=== PATIENT | female | born 1960 | race American Indian/Alaskan Native ===

== ENCOUNTER 2016-12-24 00:33 | Emergency (ER) | payer SELFPAY ==
[2016-12-24 00:54] VITALS: BMI 27.1
--- NOTE | 2016-12-24 01:15 | ED PDOC ---
Arrival/HPI - General Time Seen by Provider: 12/24/16 01:07 Historian: Patient - History of Present Illness Narrative History of Present Illness (Text): 12/24/16 01:14 Estefania Mendoza is a 56 year old female, whose past medical history includes pneumonia, sciatica, and hip surgery, who presents to the Emergency department brought in by EMS complaining of bilateral lower extremity pain. Patient states she began experiencing bilateral lower extremity pain, radiating from hips down to her feet, and associated headache after taking antibiotics yesterday. Patient states she took antibiotics she had leftover from the last time she had pneumonia after she woke up yesterday morning experiencing productive cough with sputum, chest pain, and body aches. Patient denies any recent fall/trauma, nausea, vomiting, neck pain, back pain, dizziness, or any other complaints. No PMD Time/Duration: Other (yesterday) Symptom Onset: Gradual Symptom Course: Unchanged Activities at Onset: Rest, Light Context: Home Past Medical History - Provider Review Nursing Documentation Reviewed: Yes Family/Social History - Physician Review Nursing Documentation Reviewed: Yes Family/Social History: No Known Family HX Allergies/Home Meds Allergies/Adverse Reactions: Allergies No Known Allergies Allergy (Unverified 12/24/16 01:14) Review of Systems - Physician Review All systems were reviewed & negative as marked: Yes - Review of Systems Constitutional: Normal Eyes: Normal ENT: Normal Respiratory: Cough, Sputum Cardiovascular: Chest Pain Gastrointestinal: Normal. absent: Abdominal Pain, Diarrhea, Nausea, Vomiting Genitourinary Female: Normal Musculoskeletal: Other (+bilateral lower extremity pain) Skin: Normal. absent: Rash Neurological: Headache Endocrine: Normal Hemo/Lymphatic: Normal Psychiatric: Normal Physical Exam Vital Signs Reviewed: Yes Vital Signs Temp Pulse Resp BP Pulse Ox 12/24/16 03:44 99.0 F 89 18 98/61 L 100 12/24/16 01:00 101.6 F H 99 H 16 117/66 99 Temperature: Febrile Blood Pressure: Normal Pulse: Regular Respiratory Rate: Normal Appearance: Positive for: Well-Appearing, Non-Toxic, Comfortable Pain Distress: None Mental Status: Positive for: Alert and Oriented X 3 - Systems Exam Head: Present: Atraumatic, Normocephalic Pupils: Present: PERRL Extroacular Muscles: Present: EOMI Conjunctiva: Present: Normal Mouth: Present: Moist Mucous Membranes Neck: Present: Normal Range of Motion Respiratory/Chest: Present: Clear to Auscultation, Good Air Exchange. No: Respiratory Distress, Accessory Muscle Use Cardiovascular: Present: Regular Rate and Rhythm, Normal S1, S2. No: Murmurs Abdomen: Present: Normal Bowel Sounds. No: Tenderness, Distention, Peritoneal Signs Back: Present: Normal Inspection Upper Extremity: Present: Normal Inspection. No: Cyanosis, Edema Lower Extremity: Present: Normal Inspection. No: Edema Neurological: Present: GCS=15, CN II-XII Intact, Speech Normal Skin: Present: Warm, Dry, Normal Color. No: Rashes Psychiatric: Present: Alert, Oriented x 3, Normal Insight, Normal Concentration Medical Decision Making ED Course and Treatment: 12/24/16 01:14 Impression: 56 year old female complaining of bilateral lower extremity pain, headache, productive cough, and chest pain. r/o pna, infuenza, dvt/pe, atypical cardiac Plan: -- US Duplex Lower Extremities -- EKG -- Chest X-ray -- Labs, D-dimer, cardiac enzymes, VBG, rapid influenza -- Urinalysis -- IV fluids -- Toradol -- Reassess and disposition Progress Notes: Reviewed EKG, NSR at [address]/T wave segment changes. 12/24/16 02:43 US Duplex Lower Extremities shows no evidence of DVT, as per preliminary read by [facility] tech. 12/24/16 02:48 On re-assessment, pt is resting comfortably. States her pain is much better. 12/24/16 03:58 CTA Chest shows: 1. No pulmonary embolus. 2. Mild emphysema. 3. Goitrous thyroid. 4. Small hiatal hernia. 5. 1.7 cm mass in the left breast. Ultrasound and mammographic evaluation is recommended. 12/24/16 04:23 pt sleeping in nad. trop neg. atypical pain. ct neg for pe/infiltrate. dvt study neg. labs unremarkable. no e/o of pna. stable for outpt management. pt states feels well to gohome. sleepign in nad - Lab Interpretations Lab Results: 12/24/16 01:40 12/24/16 01:40 Lab Results 12/24/16 02:45: Influenza Typ A,B (EIA) Negative for flu a/b 12/24/16 01:40: pO2 33, VBG pH 7.36, VBG pCO2 49.0, VBG HCO3 27.7, VBG Total CO2 29.2 H, VBG O2 Sat (Calc) 66.2 H, VBG Base Excess 1.5, VBG Potassium 4.2, Sodium 136.0, Chloride 106.0, Glucose 123 H, Lactate 0.8, FiO2 21.0, Venous Blood Potassium 4.2 12/24/16 01:40: Sodium 139, Chloride 104, Potassium 4.2, Carbon Dioxide 26, Anion Gap 13, BUN 8, Creatinine 0.9, Est GFR ( Amer) > 60, Est GFR (Non- Af Amer) > 60, Random Glucose 115 H, Calcium 9.6, Magnesium 1.8, Total Bilirubin 0.5, AST 21, ALT 27, Alkaline Phosphatase 63, Lactate Dehydrogenase 352, Total Creatine Kinase 53, Troponin I < 0.01, Total Protein 6.9, Albumin 4.1 , Globulin 2.8, Albumin/Globulin Ratio 1.5 12/24/16 01:40: PT 11.1, INR 1.03, APTT 27.3, D-Dimer, Quantitative 1.04 H 12/24/16 01:40: WBC 5.3, RBC 4.23, Hgb 12.7, Hct 36.2, MCV 85.6, MCH 30.0, MCHC 35.1, RDW 13.1, Plt Count 186, MPV 9.9, Gran % 86.1 H, Lymph % (Auto) 9.2 L, [place] % (Auto) 3.8, Eos % (Auto) 0.9 L, Baso % (Auto) 0.0, Gran # 4.59, Lymph # 0.5 L, [place] # 0.2, Eos # 0.1, Baso # 0.00 I have reviewed the lab results: Yes - RAD Interpretation Narrative RAD Interpretations (Text): CTA Chest shows: Pulmonary arteries: Unremarkable. No pulmonary embolism. Aorta: No acute findings. No thoracic aortic aneurysm. Lungs: Mild emphysema. Medial right middle lobe atelectasis. Pleural space: Unremarkable. No significant effusion. No pneumothorax. Heart: Unremarkable. No cardiomegaly. No significant pericardial effusion. No evidence of RV dysfunction. Mediastinum: Small hiatal hernia. Thyroid: Goitrous thyroid. Bones/joints: No acute fracture. No dislocation. Soft tissues: 1.7 cm mass in the left breast. Ultrasound and mammographic evaluation is recommended. Lymph nodes: Unremarkable. No enlarged lymph nodes. IMPRESSION: 1. No pulmonary embolus. 2. Mild emphysema. 3. Goitrous thyroid. 4. Small hiatal hernia. 5. 1.7 cm mass in the left breast. Ultrasound and mammographic evaluation is recommended. Radiology Orders: 12/24/16 01:15 CHEST PORTABLE [RAD] Stat 12/24/16 01:23 DUPLEX LOWER EXTRM VEIN BILAT [US] Stat 12/24/16 02:46 ANGIO CHEST PE PROTOCOL [CT] Stat Auto Air Conditioning Installer: Radiologist - EKG Interpretation Interpreted by ED Physician: Yes Type: 12 lead EKG - Medication Orders Current Medication Orders: Discontinued Medications Sodium Chloride (Sodium Chloride 0.9%) 1,000 mls @ 999 mls/hr IV .Q1H1M STA Stop: 12/24/16 02:15 Last Admin: 12/24/16 03:23 Dose: 999 mls/hr Iodixanol (Visipaque 320 Mg/Ml 100 Ml) Confirm Administered Dose 100 ml IV .STK- MED ONE Stop: 12/24/16 02:57 Ketorolac Tromethamine (Toradol) 30 mg IVP STAT STA Stop: 12/24/16 01:16 Last Admin: 12/24/16 01:49 Dose: 30 mg - [place] Statement The provider has reviewed the documentation as recorded by the Krissy Silva Provider Attestation: All medical record entries made by the Krissy were at my direction and personally dictated by me. I have reviewed the chart and agree that the record accurately reflects my personal performance of the history, physical exam, medical decision making, and the department course for this patient. I have also personally directed, reviewed, and agree with the discharge instructions and disposition. Disposition/Present on Arrival - Present on Arrival Any Indicators Present on Arrival: No - Disposition Have Diagnosis and Disposition been Completed?: Yes Diagnosis: Bronchitis Disposition: HOME/ ROUTINE Disposition Time: 04:23 Condition: STABLE Discharge Instructions (ExitCare): Acute Bronchitis (ED), Viral Syndrome (ED) Additional Instructions: please follow up with your doctor/clnic. . return to er with worsening symptoms or concerns Prescriptions: levoFLOXacin [Levaquin] 750 mg PO DAILY #7 tab Referrals: [facility] [Outside] - Follow up with primary [facility] [place] [Outside] - Follow up with primary
[2016-12-24] MEDS: Sodium Chloride 0.9% 1,000 ML IV STA ×2 (01:49→03:23)
[2016-12-24 02:00] LABS: ADD MANUAL DIFF? NO
[2016-12-24 02:10] LABS: EOS # 0.1 (0.0-0.7); EOS % 0.9 % (1.5-5.0); GRAN # 4.59 (1.4-6.5); GRAN % 86.1 % (50.0-68.0); HEMATOCRIT 36.2 % (36.0-48.0); LYMPH # 0.5 (1.2-3.4); LYMPH % 9.2 % (22.0-35.0); MEAN CELL VOLUME 85.6 fL (80.0-105.0); MEAN CORPUSCULAR HGB CONC 35.1 g/dl (31.0-37.0); MEAN PLATELET VOLUME 9.9 fl (7.0-11.0); MONO # 0.2 (0.1-0.6); MONO % 3.8 % (1.0-6.0); PLATELET COUNT 186 10^3/uL (120.0-450.0); RED CELL DISTRIBUTION WIDTH 13.1 % (11.5-14.5); WHITE BLOOD COUNT 5.3 10^3/ul (4.5-11.0)
[2016-12-24 02:18] LABS: ALB/GLOB RATIO 1.5 (1.1-1.8); ALKALINE PHOSPHATASE 63 U/L (38-133); ALT/SGPT 27 U/L (7-56); AST/SGOT 21 U/L (15-39); BILIRUBIN,TOTAL 0.5 mg/dL (0.2-1.3); BLOOD UREA NITROGEN 8 mg/dL (7-21); CALCIUM 9.6 mg/dL (8.4-10.5); CARBON DIOXIDE 26 mmol/L (21-33); CHLORIDE 104 mmol/L (98-107); GFR AFRICAN-AMERICAN > 60; GLUCOSE,RANDOM 115 mg/dL (70-110); MAGNESIUM 1.8 mg/dL (1.7-2.2); POTASSIUM 4.2 mmol/L (3.6-5.0); SODIUM 139 mmol/L (132-148); TOTAL PROTEIN 6.9 g/dL (5.8-8.3)
[2016-12-24 02:20] LABS: VENOUS BLOOD GAS BASE EXCESS 1.5 mmol/L (0.0-2.0); VENOUS BLOOD PH 7.36 (7.32-7.43)
[2016-12-24 02:28] LABS: INR 1.03 (0.93-1.08); PARTIAL THROMBOPLASTIN TIME 27.3 Seconds (23.7-30.8)
[2016-12-24 02:30] LABS: D DIMER 1.04 mg/L FEU (0-0.50)
[2016-12-24 02:45] LABS: TROPONIN I < 0.01 ng/mL
[2016-12-24] MEDS ORDERED: Iodixanol 320 MG/ML 100 ML BOTTLE IV ONE (02:56)
[2016-12-24 03:45] VITALS: RESP 18; O2SAT 100
[2016-12-24 05:28] LABS: URINE BILIRUBIN NEGATIVE (NEGATIVE); URINE BLOOD NEGATIVE (NEGATIVE); URINE GLUCOSE (UA) NEGATIVE (NEGATIVE); URINE KETONE NEGATIVE (NEGATIVE); URINE LEUKOCYTE ESTERASE NEGATIVE Leu/uL (NEGATIVE); URINE PROTEIN NEGATIVE mg/dL (<30 mg/dL)
[2016-12-24 05:30] LABS: URINE APPEARANCE CLEAR (CLEAR); URINE COLOR YELLOW (YELLOW)
[2016-12-24] MEDS ORDERED: Naproxen 550 mg Tab PO STA (06:47)
[2016-12-24 07:05] VITALS: BP 100/64; PULSE 86; TEMP 98.7
--- NOTE | 2016-12-24 09:13 | CT ---
PROCEDURE: CT Chest with contrast (Pulmonary Angiogram) HISTORY: cp elevated dimer COMPARISON: None available. TECHNIQUE: Axial computed tomography images were obtained of the chest in the pulmonary arterial phase of enhancement. Coronal and sagittal reformatted images were created and reviewed. Intravenous contrast dose: 90 cc of Omnipaque 300 Radiation dose: Total exam DLP = 330 mGy-cm. This CT exam was performed using one or more of the following dose reduction techniques: Automated exposure control, adjustment of the mA and/or kV according to patient size, and/or use of iterative reconstruction technique. FINDINGS: PULMONARY ARTERIES: Unremarkable. No pulmonary embolism. AORTA: No acute findings. No thoracic aortic aneurysm. LUNGS: Mild centrilobular emphysema. PLEURAL SPACES: Unremarkable. No effusion or pneuomothorax. HEART: Unremarkable. No cardiomegaly. No significant pericardial effusion. LYMPH NODES: No lymphadenopathy. BONES, CHEST WALL: Unremarkable. No fracture or destructive lesion OTHER FINDINGS: Goiter thyroid gland. 1.8 centimeter left breast mass which correlation with ultrasound or mammography is recommended. IMPRESSION: No pulmonary embolus. Please see discussion above.
--- NOTE | 2016-12-24 10:00 | RAD ---
HISTORY: cp COMPARISON: No prior. FINDINGS: LUNGS: No active pulmonary disease. PLEURA: No significant pleural effusion identified, no pneumothorax apparent. CARDIOVASCULAR: Normal. OSSEOUS STRUCTURES: No significant abnormalities. VISUALIZED UPPER ABDOMEN: Normal. OTHER FINDINGS: None. IMPRESSION: No active disease.
--- NOTE | 2016-12-24 15:05 | CARD ---
APPROVED REPORT EKG Measurement Heart [id number] <Conclusion> Sinus rhythm with short W[place] Otherwise normal ECG
--- NOTE | 2016-12-24 19:17 | US ---
HISTORY: Leg pain and swelling. Evaluate for DVT PHYSICIAN(S): Jc Noe MD. TECHNIQUE: Duplex sonography and color-flow Doppler with graded compression were used to evaluate the deep venous systems of both lower extremities. FINDINGS: The visualized deep venous systems of both lower extremities are sonographically normal and compressible. Normal wave forms and augmentation are seen. There is no sonographic evidence for deep venous thrombosis in the visualized segments of both lower extremities. IMPRESSION: No sonographic evidence for deep venous thrombosis in the visualized segments of both lower extremities.
== END 2016-12-24 07:05 | disposition home or self-care (01) ==
LOC: ED 00:33 → MERGE 00:33 → ED 07:05
DX: J40 Bronchitis, not specified as acute or chronic (principal)
CPT/HCPCS: 71010; 71275; 80053; 81003; 82550; 82803; 83615; 83735; 84484; 85025; 85378; 85610; 85730; 87804; 93005; 93970; 96361; 96374; 99285; J1885; J7040; Q9967